=== PATIENT | male | born 1985 | race Caucasian/White ===

== ENCOUNTER 2017-12-29 22:27 | Emergency (ER) | payer MEDICAID, OTHER | END 2017-12-30 00:06 | disposition home or self-care (01) | LOC: M ED 12-30 00:06 | DX: H53.40 Unspecified visual field defects (principal); F17.210 Nicotine dependence, cigarettes, uncomplicated | CPT/HCPCS: 99283 ==

== ENCOUNTER 2018-11-30 04:44 | Emergency (ER) | payer MEDICAID, SELFPAY ==
[~2018-11-30] VITALS: Ht 170.2 cm; Wt 75.0 kg
[2018-11-30] MEDS ORDERED: KETOROLAC 30 MG/ML VIAL (J1885) IV ONE (06:15)
[2018-11-30] MEDS ORDERED: AMPICILLIN SOD/SULBACTAM SOD 3 GM in D5W MINI-BAG PLUS 100 ML IV ONE (06:15)
[2018-11-30 06:55] LABS: HEMATOCRIT 44.7 % (42.0-52.0); HEMOGLOBIN 15.2 g/dl (13.5-17.5); MEAN CORPUSCULAR HEMOGLOBIN 30.6 pg (27.0-33.0); MEAN CORPUSCULAR VOLUME 90.1 fl (80.0-96.0); PLATELET COUNT, AUTOMATED 284 10^3/uL (150-450); RED BLOOD COUNT 4.96 10^6/uL (4.30-6.10)
[2018-11-30 07:02] LABS: WHITE BLOOD COUNT 18.3 10^3/uL (4.0-10.0)
[2018-11-30] MEDS ORDERED: IBUP-1022 PO (07:18)
[2018-11-30] MEDS ORDERED: AUGM875T28 PO (07:18)
[2018-11-30 07:45] VITALS: BP 118/80
[2018-11-30 08:02] LABS: EOSINOPHILS 1 % (0-5); LYMPHOCYTES 28 % (16-52); MONOCYTES 5 % (0-8); NEUTROPHILS 66 % (35-75); PLATELET ESTIMATE NORMAL (NORMAL)
== END 2018-11-30 07:50 | disposition home or self-care (01) ==
LOC: M ED 04:44
DX: K04.7 Periapical abscess without sinus (principal)
CPT/HCPCS: 85025; 86140; 96365; 96366; 96375; 99283; J1885

== ENCOUNTER 2018-12-02 08:25 | Emergency (ER) | payer SELFPAY ==
[~2018-12-02] VITALS: Ht 170.2 cm; Wt 75.0 kg
[~2018-12-02 08:25] MED LIST: AUGM875T28 PO; IBUP-1022 PO
[2018-12-02 08:26] VITALS: BP 126/71
[2018-12-02] MEDS ORDERED: NORCOTAB PO (09:10)
== END 2018-12-02 09:18 | disposition home or self-care (01) ==
LOC: M ED 08:25
DX: K04.7 Periapical abscess without sinus (principal); F17.210 Nicotine dependence, cigarettes, uncomplicated

== ENCOUNTER 2019-08-25 19:55 | Emergency (ER) | payer SELFPAY ==
[~2019-08-25] VITALS: Ht 170.2 cm; Wt 72.7 kg
[~2019-08-25 19:55] MED LIST changes: +HYDR-3715 PO
[2019-08-25 19:56] VITALS: BP 139/81
[2019-08-25] MEDS ORDERED: KETOROLAC 30 MG/ML VIAL (J1885) IM ONE (21:45)
[2019-08-25] MEDS ORDERED: LIDOCAINE 2% W/ EPINEPHRINE 1.7 ML DENTAL INJ SM ONE (21:45)
[2019-08-25] MEDS ORDERED: AUGM875T28 PO (22:28)
== END 2019-08-25 22:42 | disposition home or self-care (01) ==
LOC: M ED 19:55
DX: K02.9 Dental caries, unspecified (principal); K08.89 Other specified disorders of teeth and supporting structures; G89.29 Other chronic pain; M54.5 Low back pain; F17.200 Nicotine dependence, unspecified, uncomplicated
CPT/HCPCS: 64400; 96372; 99283; J1885

== ENCOUNTER 2021-10-01 10:40 | Emergency (ER) | payer SELFPAY ==
[~2021-10-01] VITALS: Ht 167.6 cm; Wt 76.4 kg
[2021-10-01 12:32] LABS: RSV AMPLIFICATION NEGATIVE (NEGATIVE)
[2021-10-01 13:58] VITALS: BP 119/67
== END 2021-10-01 14:13 | disposition home or self-care (01) ==
LOC: M ED 10:40
DX: U07.1 COVID-19 (principal); F17.200 Nicotine dependence, unspecified, uncomplicated

== ENCOUNTER 2023-10-07 12:30 | Emergency (ER) | payer OTHER, SELFPAY ==
[~2023-10-07] VITALS: Ht 170.2 cm; Wt 75.2 kg
[2023-10-07] MEDS ORDERED: FLON1SPR NARES (14:28)
[2023-10-07 14:36] VITALS: BP 118/64; TEMP 98; O2SAT 98
== END 2023-10-07 14:39 | disposition home or self-care (01) ==
LOC: M ED 12:30
DX: J06.9 Acute upper respiratory infection, unspecified (principal); Z79.899 Other long term (current) drug therapy

== ENCOUNTER 2024-01-31 08:46 | Emergency (ER) | payer SELFPAY ==
[~2024-01-31] VITALS: Ht 170.2 cm; Wt 77.5 kg
[~2024-01-31 08:46] MED LIST changes: +FLON1SPR NARES
[2024-01-31] MEDS ORDERED: AMOX875T2 PO (10:01)
[2024-01-31 10:02] VITALS: BP 131/77; TEMP 98.5; O2SAT 100
== END 2024-01-31 10:07 | disposition home or self-care (01) ==
LOC: M ED 08:46
DX: K04.7 Periapical abscess without sinus (principal); K08.89 Other specified disorders of teeth and supporting structures